=== PATIENT | male | born 1945 | race Caucasian/White ===

== ENCOUNTER 2020-07-16 13:57 | Emergency (ER) | payer MEDICARE, MEDICAID, SELFPAY ==
[~2020-07-16] VITALS: Ht 165.1 cm; Wt 80.7 kg
[2020-07-16 14:00] VITALS: Ht 165.1 cm; Wt 80.7 kg
[2020-07-16 16:16] VITALS: BP 115/82
== END 2020-07-16 16:16 | disposition left against medical advice (07) ==
LOC: ED 13:57
DX: Z53.21 Procedure and treatment not carried out due to patient leaving prior to being seen by health care provider (principal)